=== PATIENT | male | born 1995 | race Caucasian/White ===

== ENCOUNTER 2019-10-13 10:10 | Emergency (ER) | payer SELFPAY ==
[~2019-10-13] VITALS: Ht 162.6 cm; Wt 59.0 kg
--- NOTE | 2019-10-13 10:22 | NUR ---
MIMA SAMPSON at the bedside for MSE.
[2019-10-13] MEDS ORDERED: GABA600T12 PO (10:29)
[2019-10-13] MEDS ORDERED: PROP20TA7 PO (10:29)
--- NOTE | 2019-10-13 10:39 | NUR ---
Pt out of ER for CT.
--- NOTE | 2019-10-13 10:45 | NUR ---
Pt back from CT, resting in bed.
--- NOTE | 2019-10-13 11:33 | NUR ---
Patient discharged to home in stable condition. Written and verbal after care instructions given. Patient verbalizes understanding of instructions. Stressed follow up or return to ER for worsening s/s.
[2019-10-13 11:34] VITALS: BP 125/59
== END 2019-10-13 11:34 | disposition home or self-care (01) ==
LOC: ER 10:10
DX: R55 Syncope and collapse (principal); S06.0X1A Concussion with loss of consciousness of 30 minutes or less, initial encounter; W18.30XA Fall on same level, unspecified, initial encounter; Y92.098 Other place in other non-institutional residence as the place of occurrence of the external cause; F41.9 Anxiety disorder, unspecified; F11.10 Opioid abuse, uncomplicated; Z79.899 Other long term (current) drug therapy
CPT/HCPCS: 70450; 93005; A4663